=== PATIENT | male | born 1960 | race Asian ===

== ENCOUNTER 2016-08-12 18:36 | Emergency (ER) | payer SELFPAY ==
[~2016-08-12] VITALS: Ht 170.2 cm; Wt 85.0 kg
[2016-08-12 18:41] VITALS: BP 152/119
== END 2016-08-12 19:39 | disposition left against medical advice (07) ==
LOC: EMS 18:41
DX: R10.32 Left lower quadrant pain (principal); Z53.21 Procedure and treatment not carried out due to patient leaving prior to being seen by health care provider